=== PATIENT | male | born 1960 | race Caucasian/White ===

== ENCOUNTER 2024-01-31 09:52 | Outpatient (CLI) | payer BC ==
[2024-01-31] MEDS ORDERED: Iopamidol 300 61% 100 ML VIAL FS ONE (12:24)
[2024-01-31] MEDS ORDERED: Magnevist 469MG/ML 20 ML VIAL ONE (12:35)
== END 2024-01-31 09:53 | disposition home or self-care (01) ==
LOC: CSHCT 09:52
PROVIDERS: ATTEND Urology
DX: C61 Malignant neoplasm of prostate (principal); Z98.890 Other specified postprocedural states; N28.1 Cyst of kidney, acquired; N40.0 Benign prostatic hyperplasia without lower urinary tract symptoms
CPT/HCPCS: 72197; 74178; 82565; A9579; Q9967